=== PATIENT | male | born 2000 | race Caucasian/White ===

== ENCOUNTER 2021-04-25 12:26 | Emergency (ER) | payer BC, OTHER ==
--- NOTE | 2021-04-25 14:33 | RAD REPORT ---
EXAM DESCRIPTION: RAD - Forearm Right - 04/25/2021 2:08 pm CLINICAL HISTORY: PAIN, deformity, no specific trauma history delineated COMPARISON: No remote forearm imaging FINDINGS: No fracture is identified. There is no dislocation or periosteal reaction noted. No air or foreign body in the soft tissues. Soft tissues posterior to the elbow joint are prominent a nd the proximal anterior forearm soft tissues also appear prominent. The baseline for the patient is unknown. IMPRESSION: No acute right forearm bone or joint abnormality seen. Soft tissues posterior to the elbow joint and anterior to the proximal forearm are prominent.
--- NOTE | 2021-04-25 14:34 | RAD REPORT ---
EXAM DESCRIPTION: RAD - Elbow Right 3 View - 04/25/2021 2:08 pm CLINICAL HISTORY: Pain;Deformity, injury not specified COMPARISON: No comparisons FINDINGS: No fracture is identified and no elevated posterior fat pad. There is no dislocation or pe riosteal reaction noted. No air or foreign body in the soft tissues. IMPRESSION: No right elbow bone or joint acute finding.
--- NOTE | 2021-04-25 14:41 | ER ---
Nurse's Notes [facility] Name: Emir Sinclair Age: 20 yrs Sex: Male : 2000 Arrival Date: 04/25/2021 Time: 12:29 Bed 19 [facility] MD: Diagnosis: Contusion of right elbow Presentation: 04/25 12:29 Chief complaint: Patient states: R arm injury after falling off of his skateboard sv today. Coronavirus screen: Vaccine status: Patient reports receiving the 2nd dose of the covid vaccine. Patient reports receiving the 1st dose of the Covid vaccine. Client denies travel out of the [place] in the last 14 days. Ebola Screen: No symptoms or risks identified at this time. Risk Assessment: Do you want to hurt yourself or someone else? Patient reports no desire to harm self or others. Onset of symptoms was April 25, 2021. 12:29 Method Of Arrival: Ambulatory sv 12:29 Acuity: NORBERTO 2 sv 12:30 Initial Sepsis Screen: Does the patient meet any 2 criteria? No. Patient's initial sv sepsis screen is negative. Does the patient have a suspected source of infection? No. Patient's initial sepsis screen is negative. Triage Assessment: 12:34 General: Appears in no apparent distress. uncomfortable, Behavior is calm, cooperative. sv Neuro: Level of Consciousness is awake, alert, obeys commands, Gait is steady. Respiratory: Respiratory effort is even, unlabored. Injury Description: Deformity sustained to right elbow. Historical: - Allergies: 12:30 PENICILLINS; sv - Immunization history:: Adult Immunizations up to date. - Social history:: Smoking status: Patient reports the use of cigarette tobacco products, Reported history of juuling and/or vaping. - Family history:: not pertinent. - Hospitalizations: : No recent hospitalization is reported. Screenin:46 Abuse screen: Denies threats or abuse. Nutritional screening: No deficits noted. ap3 Tuberculosis screening: No symptoms or risk factors identified. Fall Risk Fall in past 12 months (25 points). No secondary diagnosis (0 pts). No IV (0 pts). Ambulatory Aid- None/Bed Rest/Nurse Assist (0 pts). Gait- Normal/Bed Rest/Wheelchair (0 pts) Mental Status- Oriented to own ability (0 pts). Total Jane Fall Scale indicates Low Risk Score (25-44 pts). Fall prevention measures have been instituted. Side Rails Up X 2 Frequent Obs/Assesments occuring Family Present and informed to notify staff if they need to leave bedside. Assessment: 12:44 General: Appears in no apparent distress. Behavior is calm, cooperative, appropriate ap3 for age. Pain: Complains of pain in right elbow Pain began suddenly, Alleviated by rest, Aggravated by repositioning, weight bearing. Neuro: Level of Consciousness is awake, alert, obeys commands, Oriented to person, place, time, situation, Appropriate for age Gait is steady, Speech is normal. Cardiovascular: Capillary refill < 3 seconds Patient's skin is warm and dry. Respiratory: Airway is patent Respiratory effort is even, unlabored, Respiratory pattern is regular, symmetrical. GI: No signs and/or symptoms were reported involving the gastrointestinal system. : No signs and/or symptoms were reported regarding the genitourinary system. Musculoskeletal: Bony deformity noted of right elbow. 13:56 Reassessment: Patient and/or family updated on plan of care and expected duration. Pain ap3 level reassessed. Patient is alert, oriented x 3, equal unlabored respirations, skin warm/dry/pink. Vital Signs: 12:30 BP 119 / 87; Pulse 70; Resp 16; Temp 98; Pulse Ox 100% ; Weight 61.01 kg (M); Height 5 sv ft. 7 in. (170.18 cm); Pain 10/10; 13:57 BP 114 / 73; Pulse 62; Pulse Ox 97% on R/A; ap3 12:30 Body Mass Index 21.07 (61.01 kg, 170.18 cm) sv ED Course: 12:29 Patient arrived in ED. sv 12:30 Triage completed. sv 12:30 Arm band placed on. sv 12:31 Umang Marx MD is Attending Physician. rn 12:37 Arti Garcia RN is Primary Nurse. ap3 12:46 Patient has correct armband on for positive identification. Call light in reach. Side ap3 rails up X2. Adult w/ patient. Pulse ox on. NIBP on. Door closed. Noise minimized. 14:08 XRAY Elbow RIGHT 3 view In Process Unspecified. EDMS 14:08 XRAY Forearm RIGHT In Process Unspecified. EDMS 15:10 No provider procedures requiring assistance completed. Patient did not have IV access ap3 during this emergency room visit. Administered Medications: No medications were administered Outcome: 14:40 Discharge ordered by . rn 15:10 Discharged to home ambulatory, with family. ap3 15:10 Condition: good 15:10 Discharge instructions given to patient, family, Instructed on discharge instructions, follow up and referral plans. Demonstrated understanding of instructions, follow-up care. 15:10 Patient left the ED. ap3 Signatures: Dispatcher [employer] EDDeepthi Carrillo RN RN sv Nieto, Roman, MD MD rn Prokisch, Amanda, RN RN ap3 Corrections: (The following items were deleted from the chart) 12:34 12:30 BP 119 / 87; Pulse 70bpm; Resp 16bpm; Pulse Ox 100%; Temp 98F; 63.5 kg; Height 5 sv ft. 7 in.; BMI: 21.9; Pain 10/10; sv
--- NOTE | 2021-04-25 14:41 | EDPHYS ---
Physician Documentation [facility] Name: Emir Sinclair Age: 20 yrs Sex: Male : 2000 Arrival Date: 04/25/2021 Time: 12:29 Bed 19 Private MD: ED Physician Umang Marx HPI: 04/25 13:26 This 20 yrs old Male presents to ER via Ambulatory with complaints of Arm rn Injury. 13:26 The patient or guardian complains of decreased range of motion, injury, pain. The rn complaints affect the right elbow. Context: The problem was sustained outdoors, resulted from a fall. Onset: The symptoms/episode began/occurred just prior to arrival. Treatment prior to arrival includes: no previous treatment. Modifying factors: The symptoms are alleviated by remaining still, the symptoms are aggravated by movement, bending arm. Associated signs and symptoms: Pertinent positives: decreased range of motion, deformity, swelling, Pertinent negatives: fever, numbness, tingling. Severity of symptoms: At their worst the symptoms were moderate, in the emergency department the symptoms are unchanged. The patient has not experienced similar symptoms in the past. The patient has not recently seen a physician. Patient reports fall while skateboarding, board caught my and he slid, hitting right elbow, worse with movement of the arm. No other injuries. N.p.o. since this morning. Historical: - Allergies: 12:30 PENICILLINS; sv - Immunization history:: Adult Immunizations up to date. - Social history:: Smoking status: Patient reports the use of cigarette tobacco products, Reported history of juuling and/or vaping. - Family history:: not pertinent. - Hospitalizations: : No recent hospitalization is reported. ROS: 13:26 Constitutional: Negative for fever, chills, and weight loss, Eyes: Negative for injury, rn pain, redness, and discharge, Neck: Negative for injury, pain, and swelling, Cardiovascular: Negative for chest pain, palpitations, and edema, Respiratory: Negative for shortness of breath, cough, wheezing, and pleuritic chest pain, Abdomen/GI: Negative for abdominal pain, nausea, vomiting, diarrhea, and constipation, Back: Negative for injury and pain, MS/Extremity: Positive for injury and swelling to right elbow Skin: Negative for injury, rash, and discoloration, Neuro: Negative for headache, weakness, numbness, tingling, and seizure. Exam: 13:26 Constitutional: This is a well developed, well nourished patient who is awake, alert, rn and in no acute distress. Head/Face: Normocephalic, atraumatic. Skin: No lacerations noted MS/ Extremity: Pulses equal, no cyanosis. Neurovascular intact. Tenderness right elbow and proximal forearm with swelling. No open wounds. No tenderness of right shoulder or right clavicle. Neuro: Awake and alert, GCS 15, oriented to person, place, time, and situation. Cranial nerves II-XII grossly intact. Motor strength 5/5 in all extremities. Sensory grossly intact. Cerebellar exam normal. Normal gait. Vital Signs: 12:30 BP 119 / 87; Pulse 70; Resp 16; Temp 98; Pulse Ox 100% ; Weight 61.01 kg (M); Height 5 sv ft. 7 in. (170.18 cm); Pain 10/10; 13:57 BP 114 / 73; Pulse 62; Pulse Ox 97% on R/A; ap3 12:30 Body Mass Index 21.07 (61.01 kg, 170.18 cm) sv MDM: 12:31 Patient medically screened. rn 14:39 Differential diagnosis: closed fracture, contusion. Data reviewed: vital signs, nurses rn notes, radiologic studies, plain films, and as a result, I will discharge patient. Test interpretation: by ED physician or midlevel provider: plain radiologic studies, X-ray right elbow and forearm negative for acute fracture or dislocation. Counseling: I had a detailed discussion with the patient and/or guardian regarding: the historical points, exam findings, and any diagnostic results supporting the discharge/admit diagnosis, radiology results, the need for outpatient follow up, to return to the emergency department if symptoms worsen or persist or if there are any questions or concerns that arise at home. Special discussion: I discussed with the patient/guardian in detail that at this point there is no indication for admission to the hospital. It is understood, however, that if the symptoms persist or worsen the patient needs to return immediately for re-evaluation. 04/25 12:35 Order name: XRAY Elbow RIGHT 3 view; Complete Time: 14:39 rn 04/25 12:35 Order name: XRAY Forearm RIGHT; Complete Time: 14:39 rn 04/25 12:35 Order name: NPO; Complete Time: 12:37 rn 04/25 14:47 Order name: Sling; Complete Time: 14:55 rn Administered Medications: No medications were administered Disposition Summary: 04/25/21 14:40 Discharge Ordered Location: Home rn Problem: new rn Symptoms: have improved rn Condition: Stable rn Diagnosis - Contusion of right elbow rn Followup: rn - With: Private Physician - When: As needed - Reason: Recheck today's complaints, Re-evaluation by your physician Discharge Instructions: - Discharge Summary Sheet rn - Elbow Contusion rn Forms: - Medication Reconciliation Form rn - Thank You Letter rn - Antibiotic finance intern - Prescription Opioid Use rn Signatures: Dispatcher [employer] Deepthi Piña RN RN Umang Arredondo MD MD rn
[2021-04-25 15:17] VITALS: TEMP 98
[2021-04-25 15:18] VITALS: BP 114/73; O2SAT 97
== END 2021-04-25 15:10 | disposition home or self-care (01) ==
LOC: ER 12:26
DX: S50.01XA Contusion of right elbow, initial encounter (principal); V00.131A Fall from skateboard, initial encounter; Z72.0 Tobacco use; Z88.0 Allergy status to penicillin
CPT/HCPCS: 99283